=== PATIENT | male | born 1955 | race Caucasian/White ===

== ENCOUNTER 2018-05-20 15:07 | Outpatient (RCR) | payer BC ==
[~2018-05-20 15:07] MED LIST: BACTRIM DS TAB1 EAC1 ORAL; CYTOMEL5 MCG ORAL; KEFLEX500 MG ORAL; LEVOTHYROXINE75 MCG ORAL; LOSARTAN POTASS25 MG ORAL
== END 2018-05-30 | disposition home or self-care (01) ==
LOC: WCC 15:07
DX: T81.89XA Other complications of procedures, not elsewhere classified, initial encounter (principal); I10 Essential (primary) hypertension; E03.9 Hypothyroidism, unspecified; Z87.891 Personal history of nicotine dependence; R19.00 Intra-abdominal and pelvic swelling, mass and lump, unspecified site
CPT/HCPCS: G0277; G0463

== ENCOUNTER 2018-05-20 16:48 | Outpatient (RCR) | payer SELFPAY | END 2018-05-30 | disposition still patient (30) | LOC: WCC 16:48 | DX: T81.89XA Other complications of procedures, not elsewhere classified, initial encounter (principal); I10 Essential (primary) hypertension; E03.9 Hypothyroidism, unspecified; Z87.891 Personal history of nicotine dependence; R19.00 Intra-abdominal and pelvic swelling, mass and lump, unspecified site; Y83.9 Surgical procedure, unspecified as the cause of abnormal reaction of the patient, or of later complication, without mention of misadventure at the time of the procedure ==